=== PATIENT | male | born 1980 | race Caucasian/White ===

== ENCOUNTER 2020-07-06 08:37 | Outpatient (CLI) | payer OTHER, SELFPAY ==
--- NOTE | 2020-07-06 08:45 | MR_ITS ---
WS: [id number] MRI LUMBAR SPINE NONCONTRAST TECHNIQUE: Sagittal T1, T2 and STIR imaging. Axial T1 and T2 imaging. CLINICAL INFORMATION: M54.5 - Low back pain COMPARISON: MRI 2015 FINDINGS: Mild lumbar curve. No acute compression. Small central protrusions at L1-2, L4-5, and L5-S1. Mild apryl tral canal stenosis floor director imaging cervical spine at C4-C6. L1-L2: Small left pericentral disc protrusion with slight narrowing of the left subarticular recess. This is progressed since 2015. Mild facet arthropathy. Mild left foraminal narrowing. L2-L3: Normal. L3-L4: Mild annular bulging. Mild facet arthropathy. Mild facet arthropathy. Foramen are patent. L4-L5: Postoperative changes L4-5 laminectomy new from previous. Partial discectomy. Spinal canal is patent. Narrowing of the subarticular recess bilaterally with shallow central disc bulging. Moderate facet arthropathy. Mild right greater than left foraminal narrowing. L5-S1: Left pericentral disc protrusion impinges the traversing left S1 nerve root in the subarticula r recess. Mild left foraminal narrowing. Moderate facet arthropathy. Visualized pelvic bony structures: Normal. Paravertebral soft tissues: Normal. MR/MR lumbar spine wo con* [id number] IMPRESSION: 1. Mild lumbar curve. No acute compression. No high-grade central canal stenos is. 2. Prior laminectomy defects L4-5 new from previous. Shallow central disc bulg ing with mild narrowing of the subarticular recess at this level. Mild bilatera l foraminal narrowing. 3. Left pericentral disc protrusion L5-S1 progressed from previous impinges th e traversing left S1 nerve root. Mild left L5-S1 foraminal narrowing. 4. Tiny shallow left pericentral protrusion L1-2 impinges the traversing left L2 nerve root. This is progressed from previous. 5. Mild central canal stenosis in the cervical spine at C4-C6. 6. A few small disc protrusions in the mid and lower thoracic spine more promi nent at T8-T9, T9-T10, T10-11. This can be further evaluated with thoracic spin e MRI.
== END 2020-07-06 08:38 | disposition home or self-care (01) ==
PROVIDERS: PCP Nurse Practitioner Family; Visit Provider Nurse Practitioner Family
DX: M51.24 Other intervertebral disc displacement, thoracic region (principal); M48.02 Spinal stenosis, cervical region; M51.26 Other intervertebral disc displacement, lumbar region; M51.27 Other intervertebral disc displacement, lumbosacral region; M96.1 Postlaminectomy syndrome, not elsewhere classified
CPT/HCPCS: 72148

== ENCOUNTER → 2020-07-08 09:30 | Outpatient (BNVA) | payer OTHER, SELFPAY | PROVIDERS: PCP Nurse Practitioner Family; Referring Provider Dermatology; Visit Provider Orthopaedic Surgery | DX: M54.5 Low back pain (principal); Z48.89 Encounter for other specified surgical aftercare | CPT/HCPCS: 72110 ==

== ENCOUNTER 2020-11-22 08:17 | Emergency (ER) | payer OTHER, SELFPAY ==
[2020-11-22 08:23] VITALS: BP 172/121; PULSE 98; RESP 18; TEMP 36.8; O2SAT 97; BMI 18.6
[2020-11-22 08:33] VITALS: BP 174/127; PULSE 98; O2SAT 100
--- NOTE | 2020-11-22 08:35 | ED_ITS ---
HPI - Skin/Abscess/Foreign Bdy General: Chief complaint: Skin/Abscess/Foreign Body Stated complaint: Itching in hands Time Seen by Provider: 11/22/20 08:20 History of Present Illness: HPI narrative: 40-year-old male presents emergency room complaining of bugs coming out of his hands for the last month. States it began after he was in a friend's barn and he said he felt things crawling up on his legs. He states they are now working their way to his hands and they are exiting from the skin from his hands. He showed me a video on his phone where he had applied some sort of adhesive to the hand and then scraped it off. The skin of his hands is darkened after placing the adhesive on it which he states is evidence of the bugs inside the skin in his hand. Patient is very enthusiastic and confident about the self diagnosis which he states he confirmed by Googling it. MD complaint: rash Onset (ago): week(s) Location: L hand and R hand Relieving factors: none Exacerbating factors: none Associated symptoms: Deny arthralgias, chills, cough, fever(s), itching, myalgias, nausea, rigidity, short of breath or vomiting Treatments prior to arrival: none Review of Systems Const: Denies: fever(s) or chills ENMT: Denies: throat pain, ear or mastoid pain, nasal discharge or nasal c ongestion Card: Denies: chest pain, edema, dyspnea on exertion or orthopnea Resp: Denies: dyspnea, productive cough or non-productive cough GI: Denies: nausea or vomiting : Denies: flank pain, dysuria, urinary frequency or urinary urgency Skin/Breast: Reports: rash; Denies: pruritus PFS ED PFSH: Medical History Acute lumbar back pain Surgical History History of lumbar surgery Right L4-L5 hemilaminotomy/discectomy/formainotomy 11/30/[address] Rothman at [facility]. Social History Smoking and tobacco status: current every day smoker Quit status (tobacco): not considering quitting Second hand smoke exposure: No Smoking risk assessment/counseling performed?: No Alcohol intake: never Desire information about alcohol rehabilitation?: No Counseling given: No Physical Exam Const: GENERAL APPEARANCE: cooperative ORIENTATION/CONSCIOUSNESS: Yes awake HENMT: COMMON NORMALS: normocephalic, atraumatic and hearing grossly normal bilaterally HEAD & SCALP: normocephalic and atraumatic Neck/C-Spine: COMMON NORMALS: full ROM, no lymphadenopathy, supple and no JVD Resp: COMMON NORMALS: normal respiratory effort, No retractions, No use of accessory muscles and clear to auscultation bilaterally AUSCULTATION: clear to auscultation bilaterally Cardio: COMMON NORMALS: no JVD, regular rate, regular rhythm and No murmurs present (Cardio) RATE: regular rate RHYTHM: regular rhythm Extremity: NARRATIVE EXTREMITY EXAM: Examination had sitters significant about of what appears to be dirt oil etc. in the creases of the hands there are some areas of healing abrasions at various levels of resolution. He has some open excoriated areas on the dorsum of the hand. There is no active sign of an injection no drainage no abscess. No erythema. Course Vital Signs: Vital signs: Vital Signs Temperature 98.2 F 11/22/20 08:23 Pulse Rate 98 11/22/20 08:33 Respiratory Rate 18 11/22/20 08:23 Blood Pressure 174/127 11/22/20 08:33 Pulse Oximetry 100 11/22/20 08:33 MDM - Skin/Abscess/Foreign Bdy MDM Narrative: Medical decision making narrative: Suspect patient's currently under the influence of methamphetamine. He is very erratic in his description he Coleen tries to show me multiple videos in camera pictures but is unable to find any pictures that show me what he actually describes he switches back and forth between pitchers frequently. There is no evidence of any skin Data no evidence of any ongoing rash he is complaining of itching. Will have him use a little bit of betamethasone on the hands twice daily and set him up for dermatology. Discharge Plan Discharge Patient Disposition: Home Clinical Impression: Chemical dermatitis Condition: Stable Prescriptions: New betamethasone dipropionate 0.05 % ointment 1 applic topical BID Qty: 45 RF: 0 No Action prednisone 20 mg tablet 20 mg PO DAILY Qty: 15 RF: 0 methylprednisolone [Medrol (Yosvany)] 4 mg tablets,dose pack See Rx Instructions PO PER PKG DIR Qty: 21 RF: 0 ibuprofen 800 mg tablet 800 mg PO Q8H 30 Days Qty: 90 RF: 0 hydrocodone-acetaminophen 5-325 mg tablet 1 tab PO .q4-6 hours PRN (Reason: pain) 5 Days Qty: 30 RF: 0 Discharge Orders: Discharge ED (Routine); Ordered 11/22/20 Ordered By: Mohan Schmitz Referrals: KEVIN Whiteside, CERTIFIED WELLNESS PROGRAM COORDINATOR [Primary Care Provider] - Discharge Diet: Usual diet Discharge Activity: Resume usual activity Patient Instructions: Opioid Safety Activity Restrictions/Additional Instructions: Recommend you do not use any glues or other adhesives cleaning products etc. on your skin. Use the topical steroid twice daily for 7 to 10 days. Case management will make arrangements for you to see dermatology. Coding Level of Care Code ED Brake Operator Heavy Duty for Paulo Fwjavier Exam Detailed
--- NOTE | 2020-11-23 12:33 | DCPLANNER ---
Addendum entered by Tracey Murrieta 12/08/20 13:27: resolution manager called clinic to confirm if an appointment had been scheduled for patient. resolution manager was told that clinic has attempted to contact patient to schedule an appointment, waiting for patient to call clinic to schedule an appointment. Original Note: resolution manager had message to schedule a follow up appointment for patient with dermatology. resolution manager called the dermatology clinic, spoke with Jacquie, gave clinic patients information. resolution manager was told that patients information would be printed and reviewed. Clinic will call patient with appointment information.
== END 2020-11-22 08:45 | disposition home or self-care (01) ==
PROVIDERS: Emergency Provider Family Medicine; PCP Nurse Practitioner Family
DX: L25.3 Unspecified contact dermatitis due to other chemical products (principal); F17.210 Nicotine dependence, cigarettes, uncomplicated
CPT/HCPCS: 99281

== ENCOUNTER → 2020-11-26 10:52 | Outpatient (BNVA) | payer OTHER, SELFPAY | PROVIDERS: PCP Nurse Practitioner Family; Visit Provider Registered Nurse | DX: E11.9 Type 2 diabetes mellitus without complications (principal); I10 Essential (primary) hypertension; R20.2 Paresthesia of skin; E53.8 Deficiency of other specified B group vitamins | CPT/HCPCS: 80053; 80307; 81000; 82607; 85025; 87491; 87591 ==

== ENCOUNTER 2021-07-30 23:30 | Emergency (ER) | payer MEDICAID, SELFPAY ==
[2021-07-30 23:32] VITALS: BP 187/117; PULSE 92; RESP 20; O2SAT 97; BMI 26.6
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
[2021-07-30] MEDS: LORazepam 2 mg/mL INJ 1 mL 4 MG IVP (23:36)
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
[2021-07-30 23:49] VITALS: BP 167/111; PULSE 89; RESP 13; O2SAT 96
--- NOTE | 2021-07-30 23:50 | ECG_ITS ---
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 Measurements Intervals [place] Rate: 88 P: 67 ND: 133 QRS: 71 QRSD: 87 T: 72 QT: 381 QTc: 463 Interpretive Statements SINUS RHYTHM MINIMAL VOLTAGE CRITERIA FOR LVH, CONSIDER NORMAL VARIANT [MEETS CRITERIA IN ONE OF: R(aVL), S(V1), R(V5), R(V5/V6)+S(V1)] No previous ECG available for comparison Electronically Signed On 07-31-2021 19:27:42 CDT by Matthew Knight M.D. [id number]
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
[2021-07-30 23:58] LABS: Basophils % 0.3 %; Eosinophils # 0.2 10^3/uL (0.0-0.8); Eosinophils % 1.5 %; Hematocrit 39.2 % (42.0-52.0); Hemoglobin 12.9 g/dL (11.7-16.6); Lymphocytes # 2.7 10^3/uL (0.8-4.8); Lymphocytes % 23.6 %; Mean Corpuscular HGB Conc 32.9 g/dL (30.0-36.0); Mean Corpuscular Hemoglobin 31.1 pg (28.0-34.0); Mean Corpuscular Volume 94.5 fl (80-94); Mean Platelet Volume 8.5 fL (7.4-10.4); Monocytes # 0.9 10^3/uL (0.2-0.9); Neutrophils # 7.54 10^3/uL (1.8-7.7); Nucleated Red Blood Cells % 0 %; Platelet Count 383 10^3/cmm (130-400); Red Blood Count 4.15 10^6/uL (4.1-5.3); Red Cell Distribution Width 13.2 % (12.1-15.1); White Blood Count 11.4 10^3/uL (4.0-10.0)
[2021-07-31] VITALS (23 sets, daily range): BP systolic 128–166; BP diastolic 77–100; PULSE 92–112; RESP 17–23; O2SAT 92–98
[2021-07-31] MEDS: sodium chloride 0.9% 1,000 ML 999 ML IV (00:10)
[2021-07-31 00:13] LABS: Alanine Aminotransferase 32 U/L (0-41); Albumin Level 3.9 g/dL (3.5-5.2); Alkaline Phosphatase 92 IU/L (40-130); Anion Gap 12.5 (5-19); Aspartate Amino Transferase 25 U/L (0-40); Blood Urea Nitrogen 17 mg/dL (6-20); Calcium 8.4 mg/dL (8.5-10.5); Carbon Dioxide 27 mmol/L (22-29); Chloride 98 mmol/L (98-107); Globulin 2.9 g/dL (1.3-4.6); Glomerular Filtration Rate 123.1 mL/min (90-130); Glucose 96 mg/dL (65-115); Magnesium 2.1 mg/dL (1.7-2.3); Osmolality Calculated 279 mOsm/kg (285-295); Phosphorus 4.4 mg/dL (2.5-4.5); Potassium 3.5 mmol/L (3.5-5.1); Sodium 134 mmol/L (136-145); Total Bilirubin 0.2 mg/dL (0.15-1.2); Total Protein 6.8 g/dL (6.6-8.7)
[2021-07-31 00:17] LABS: ABG PCO2 45.2 mmHg (35-45); ABG PH Result 7.43 (7.35-7.45); Arterial Blood Gas Hematocrit 40.2 % (42-52); Blood Gas Allen Test Pos; Blood Gas Sample Site Radial, right; Blood Gas Sample Type Arterial; HCO3 ABG 30.1 mmol/L (22-26); Oxygen Device ROOM AIR; PO2 ABG 88.4 mmHg (80.0-100.0)
[2021-07-31 00:22] LABS: Alcohol Level < 10 mg/dL (0-10)
[2021-07-31 00:29] LABS: INR 0.98 (0.8-1.2)
[2021-07-31 00:34] LABS: Amphetamines Screen Urine Positive (Negative); Barbiturates Screen Urine Negative (Negative); Benzodiazepines Screen Urine Negative (Negative); Cocaine Screen Urine Negative (Negative); Opiate Screen Urine Negative (Negative); PCP Screen Urine Negative (Negative); THC Screen Urine Positive (Negative)
--- NOTE | 2021-07-31 00:34 | PC.NURSE ---
pt straight cath for urine
[2021-07-31 00:40] LABS: Add Urine Microscopic? YES; Bilirubin Urine Neg (Negative); Blood Urine Trace (Negative); Glucose Urine UA Norm (Normal); Ketones Urine Negative (Negative); Leukocyte Esterase Urine Negative (Negative); Nitrate Urine Negative (Negative); Protein Urine Neg (Negative); Specific Gravity, Urine 1.025 (1.005-1.030); Urine Appearance Clear (CLEAR); Urine Color Yellow (Yellow); Urobilinogen Urine Norm (Negative); pH Urine 5 (5-7)
[2021-07-31 00:41] LABS: Add Urine Culture? No; Bacteria Urine TRACE /hpf; Squamous Epithelial Cell Urine 0-4 /hpf (0-5); WBC Urine 0-4 /hpf (0-5)
[2021-07-31] MEDS: iohexol 300 mg/mL 100 mL Btl IV (00:44)
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
--- NOTE | 2021-07-31 02:52 | PC.NURSE ---
pt removed monitor and pulse ox stood up on the side of bed, would not listen to staff walked down the samson urinating, pt was placed in wheelchair and taken back to room placed back on monitor he rolled over and went to sleep
== END 2021-07-31 06:20 | disposition home or self-care (01) ==
PROVIDERS: Emergency Provider Emergency Medicine; PCP Registered Nurse
DX: S06.0X9A Concussion with loss of consciousness of unspecified duration, initial encounter (principal); V86.99XA Unspecified occupant of other special all-terrain or other off-road motor vehicle injured in nontraffic accident, initial encounter; F15.129 Other stimulant abuse with intoxication, unspecified
CPT/HCPCS: 36600; 70450; 71260; 72125; 73562; 74177; 80053; 80306; 80307; 81001; 82803; 83735; 84100; 85025; 85610; 86850; 86900; 93005; 96361; 96374; 99284; J2060; J7030; Q9967

== ENCOUNTER 2021-08-17 22:22 | Emergency (ER) | payer MEDICAID, SELFPAY ==
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
[2021-08-17 22:26] VITALS: BP 175/108; PULSE 92; RESP 20; TEMP 37; O2SAT 98; BMI 25.1
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
[2021-08-17] MEDS: HYDROcodone-acetaminophen 7.5-325 mg Tablet 1 TAB PO (23:00)
[2021-08-17 23:48] VITALS: BP 169/98; PULSE 88; RESP 16; TEMP 37; O2SAT 98
--- NOTE | 2021-08-18 13:04 | DCPLANNER ---
Addendum entered by Tracey Murrieta 08/25/21 15:31: Patient had a follow up appointment scheduled for 08.19.21 at ortho - patient did attend appointment. Original Note: auto fleet manager had message to schedule a follow up appointment for patient with ortho. auto fleet manager sent patients information to the front office staff at ortho. Patients information will be printed and reviewed. Clinic will call patient with appointment information.
== END 2021-08-17 23:49 | disposition home or self-care (01) ==
PROVIDERS: Emergency Provider Physician Assistant
DX: S89.91XA Unspecified injury of right lower leg, initial encounter (principal); W19.XXXA Unspecified fall, initial encounter; F17.210 Nicotine dependence, cigarettes, uncomplicated
CPT/HCPCS: 29530; 73562; 99283; E0114

== ENCOUNTER → 2021-10-06 11:51 | Outpatient (BNVA) | payer OTHER, SELFPAY | PROVIDERS: Visit Provider Psychiatry & Neurology Psychiatry | DX: F41.1 Generalized anxiety disorder (principal) | CPT/HCPCS: 80061; 83036 ==

== ENCOUNTER 2022-02-01 18:28 | Emergency (ER) | payer BC, MEDICAID, SELFPAY ==
[2021-10-26 16:33] VITALS: BP 154/100; BMI 25.0
--- NOTE | 2022-02-01 18:38 | XRR_ITS ---
PROCEDURE INFORMATION: Exam: XR Chest Exam date and time: 02/01/2022 6:46 PM Age: 41 years old Clinical indication: Other: AMS TECHNIQUE: Imaging protocol: Radiologic exam of the chest. Views: 1 view. COMPARISON: CT chest abd pel w con* 07/31/2021 12:36 AM FINDINGS: Lungs: Unremarkable. No consolidation. Pleural spaces: Unremarkable. No pleural effusion. No pneumothorax. Heart/Mediastinum: Unremarkable. No cardiomegaly. Bones/joints: Unremarkable. XR/XR chest 1V portable [id number] IMPRESSION: No acute findings.
[2022-02-01 18:40] VITALS: BP 181/110; PULSE 94; RESP 14; TEMP 36.4; O2SAT 96; BMI 25.1
--- NOTE | 2022-02-01 18:42 | ED_ITS ---
HPI - General Adult General: Chief complaint: Overdose Stated complaint: possible poison Time Seen by Provider: 02/01/22 18:32 Source: EMS Mode of arrival: EMS Limitations: altered mental status History of Present Illness: 41-year-old male is brought in by EMS for altered mental status. Per patient's brother he had been hanging out with friends he does use marijuana he states he had had marijuana cookies and he believes that he had 8 1. Patient here is not able to answer any my questions he will respond to painful stimuli and does say his name but otherwise does not answer any other questions no signs of any injuries. Review of Systems General: Reports: ROS unobtainable due to mental status PFSH ED PFSH: Medical History Acute lumbar back pain Psychiatric care Surgical History History of lumbar surgery Right L4-L5 hemilaminotomy/discectomy/formainotomy 11/30/[address] Rothman at [facility]. Family History Other Cancer Diabetes Hypertension Recreational drug use Social History Smoking and tobacco status: current every day smoker cigars Cigars smoked per week: 3 Years smoked cigars: 23 Quit status (tobacco): has tried quititng Number of times tried to quit tobacco: 4 Second hand smoke exposure: No Smoking risk assessment/counseling performed?: No Alcohol intake: current Alcohol intake frequency: holidays/special occasions only Alcohol type: beer Desire information about alcohol rehabilitation?: No Counseling given: No Desire information about substance/drug rehabilitation?: No Counseling given: No Adopted: No Caregiver/support person: No Lives independently: Yes Household members: family Housing: House Marital status: Number of children: 1 Number of grandchildren: 0 Highest education level completed: Some College, No Degree service: Yes 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: Active Duty branch: [employer] Assignments: Outside [facility] ([employer]) Known or Potential Exposure: Environmental Toxins, Traumatic Brain Injury (TBI) and Post Traumatic Stress Disorder (PTSD) Current occupational status: disabled Pets and animals: Yes Pets & animals: cat(s) and dog(s) History of recent travel: No Leisure activites: art, music, games and other Leisure activities details: anyt hin outdoors Current gender identity: Male Marcie/Uatsdin: Gnosticist Special marcie needs: No Agree to transfusion: Yes Financial difficulty paying for basics: Very Hard Physical Exam Const: COMMON NORMALS: negative for patient oriented x3 EXAM LIMITATIONS: altered mental status HENMT: COMMON NORMALS: normocephalic and atraumatic HEAD & SCALP: normocephalic and atraumatic Eye: COMMON NORMALS: Equal, round and reactive pupils present and EOMs intact bilaterally PUPIL: Yes Equal, round and reactive pupils present Neck/C-Spine: COMMON NORMALS: full ROM and supple Chest: COMMONS NORMALS: normal inspection of the chest and normal palpation of entire chest wall Resp: COMMON NORMALS: normal respiratory effort, No retractions, No use of accessory muscles and clear to auscultation bilaterally AUSCULTATION: clear to auscultation bilaterally Cardio: COMMON NORMALS: regular rate, regular rhythm and No murmurs present (Cardio) RATE: regular rate RHYTHM: regular rhythm GI: COMMON NORMALS: Normal to inspection, nondistended, normoactive bowel sounds present, Soft to palpation, non-tender and no masses PALPATION: Yes Soft to palpation Extremity: COMMON NORMALS: normal to inspection and full ROM Neuro: COMMON NORMALS: no focal motor deficits; negative for patient oriented x3 Psych: COMMON NORMALS: negative for mental status grossly normal Skin: COMMON NORMALS: no rashes or lesions noted and no wounds GENERAL SKIN EXAM: no rashes or lesions noted Course Vital Signs: Vital signs: Vital Signs Temperature 97.5 F L 02/01/22 18:40 Pulse Rate 94 02/01/22 18:40 Respiratory Rate 14 02/01/22 18:40 Blood Pressure 181/110 02/01/22 18:40 Pulse Oximetry 96 02/01/22 18:40 Oxygen Delivery Me thod 02/01/22 18:40 MDM - General Adult Medical Decision Making Patient presents here with altered mental status from possible drug ingestion he is now awake and alert well-appearing he has no complaints he is able ambulate without any difficulty his other lab work CT is normal he stable for discharge return if worsening. Lab Data : 02/01/22 18:40 02/01/22 18:40 Radiology Impressions Chest X-Ray 02/01/22 18:38 IMPRESSION: No acute findings. Laboratory Results WBC 9.7 10^3/uL (4.0-10.0) 02/01/22 18:40 RBC 4.44 10^6/uL (4.1-5.3) 02/01/22 18:40 Hgb 14.0 g/dL (11.7-16.6) 02/01/22 18:40 Hct 42.3 % (42.0-52.0) 02/01/22 18:40 MCV 95.3 fl (80-94) H 02/01/22 18:40 MCH 31.5 pg (28.0-34.0) 02/01/22 18:40 MCHC 33.1 g/dL (30.0-36.0) 02/01/22 18:40 RDW 12.8 % (12.1-15.1) 02/01/22 18:40 Plt Count 331 10^3/cmm (130-400) 02/01/22 18:40 MPV 9.0 fL (7.4-10.4) 02/01/22 18:40 Neut % (Auto) 71.2 % 02/01/22 18:40 Lymph % (Auto) 19.8 % 02/01/22 18:40 [place] % (Auto) 7.8 % 02/01/22 18:40 Eos % (Auto) 0.4 % 02/01/22 18:40 Baso % (Auto) 0.3 % 02/01/22 18:40 Neut # (Auto) 6.92 10^3/uL (1.8-7.7) 02/01/22 18:40 Lymph # (Auto) 1.9 10^3/uL (0.8-4.8) 02/01/22 18:40 [place] # (Auto) 0.8 10^3/uL (0.2-0.9) 02/01/22 18:40 Eos # (Auto) 0.0 10^3/uL (0.0-0.8) 02/01/22 18:40 Baso # (Auto) 0.0 10^3/uL (0.0-0.1) 02/01/22 18:40 Nucleated RBC % (auto) 0 % 02/01/22 18:40 Nucleated RBCs # 0.0 /100WBC 02/01/22 18:40 PT 14.20 SECONDS (12.1-14.9) 02/01/22 18:40 INR 1.06 (0.8-1.2) 02/01/22 18:40 Sodium 137 mmol/L (136-145) 02/01/22 18:40 Potassium 3.3 mmol/L (3.5-5.1) L 02/01/22 18:40 Chloride 102 mmol/L (98-107) 02/01/22 18:40 Carbon Dioxide 25 mmol/L (22-29) 02/01/22 18:40 Anion Gap 13.3 (5-19) 02/01/22 18:40 BUN 18 mg/dL (6-20) 02/01/22 18:40 Creatinine 1.2 mg/dL (0.7-1.2) 02/01/22 18:40 GFR Calculation Not Reportable 02/01/22 18:40 Glucose 105 mg/dL (65-115) 02/01/22 18:40 Calculated Osmolality 286 mOsm/kg (285-295) 02/01/22 18:40 Calcium 8.4 mg/dL (8.5-10.5) L 02/01/22 18:40 Total Bilirubin 0.2 mg/dL (0.15-1.2) 02/01/22 18:40 AST 22 U/L (0-40) 02/01/22 18:40 ALT 14 U/L (0-41) 02/01/22 18:40 Alkaline Phosphatase 95 U/L (40-130) 02/01/22 18:40 Total Protein 6.8 g/dL (6.6-8.7) 02/01/22 18:40 Albumin 4.0 g/dL (3.5-5.2) 02/01/22 18:40 Globulin 2.8 g/dL (1.3-4.6) 02/01/22 18:40 Salicylates < 0.3 mg/dL (3-10) L 02/01/22 18:40 Urine Opiates Screen Negative ng/mL (Negative) 02/01/22 19:16 Acetaminophen < 5.0 ug/mL (10-30) L 02/01/22 18:40 Ur Barbiturates Screen Negative ng/mL (Negative) 02/01/22 19:16 Ur Phencyclidine Scrn Negative ng/mL (Negative) 02/01/22 19:16 Ur Amphetamines Screen Positive ng/mL (Negative) H 02/01/22 19:16 U Benzodiazepines Scrn Negative ng/mL (Negative) 02/01/22 19:16 Urine Cocaine Screen Negative ng/mL (Negative) 02/01/22 19:16 U Marijuana (THC) Screen Positive ng/mL (Negative) H 02/01/22 19:16 Ethyl Alcohol < 10 mg/dL (0-10) 02/01/22 18:40 EKG Data EKG 1: I personally reviewed and interpreted this EKG as follows: EKG interpretation date: 02/01/22 EKG interpretation time: 18:56 Interpretation: nsr hr [address] or t wave abnormalities qrs 89 qtc 417 Computer generated interpretation: Chest X-Ray 02/01/22 18:38 IMPRESSION: No acute findings. Discharge Plan Discharge Patient Disposition: Home Clinical Impression: Altered mental state Condition: Stable Prescriptions: No Action fluoxetine [Prozac] 20 mg capsule 20 mg PO DAILY Qty: 30 2RF trazodone 50 mg tablet 100 mg PO BID PRN (Reason: insomnia) Qty: 60 1RF atorvastatin 20 mg tablet 20 mg PO DAILY cholecalciferol (vitamin D3) 25 mcg (1,000 unit) capsule 25 mcg PO DAILY Discharge Orders: Discharge ED (Routine); Ordered 02/01/22 Ordered By: Patel Jaimes Discharge Diet: Advance as tolerated Discharge Activity: Resume usual activity Patient Instructions: Altered Mental Status (ED) Coding Level of Care Code ED Beauty Director for Gabrieleg Fwd Exam Comprehensive
[2022-02-01 18:53] LABS: Basophils % 0.3 %; Eosinophils % 0.4 %; Hematocrit 42.3 % (42.0-52.0); Lymphocytes # 1.9 10^3/uL (0.8-4.8); Lymphocytes % 19.8 %; Mean Corpuscular HGB Conc 33.1 g/dL (30.0-36.0); Mean Corpuscular Hemoglobin 31.5 pg (28.0-34.0); Mean Corpuscular Volume 95.3 fl (80-94); Monocytes # 0.8 10^3/uL (0.2-0.9); Monocytes % 7.8 %; Neutrophils # 6.92 10^3/uL (1.8-7.7); Neutrophils % 71.2 %; Nucleated Red Blood Cells % 0 %; Platelet Count 331 10^3/cmm (130-400); Red Blood Count 4.44 10^6/uL (4.1-5.3); Red Cell Distribution Width 12.8 % (12.1-15.1); White Blood Count 9.7 10^3/uL (4.0-10.0)
--- NOTE | 2022-02-01 18:56 | ECG_ITS ---
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 Measurements Intervals [place] Rate: 94 P: 54 AR: 133 QRS: 8 QRSD: 89 T: 56 QT: 365 QTc: 457 Interpretive Statements SINUS RHYTHM POSSIBLE LEFT ATRIAL ENLARGEMENT [-0.1mV P-WAVE IN V1/V2] Compared to ECG 07/31/2021 00:17:59 No significant changes Electronically Signed On 02-02-2022 7:07:44 CDT by Ron Prasad M.D. [id number]
[2022-02-01 19:05] LABS: INR 1.06 (0.8-1.2)
[2022-02-01] MEDS: sodium chloride 0.9% 1,000 ML 999 ML IV (19:07)
[2022-02-01 19:29] LABS: Alanine Aminotransferase 14 U/L (0-41); Alkaline Phosphatase 95 U/L (40-130); Anion Gap 13.3 (5-19); Aspartate Amino Transferase 22 U/L (0-40); Blood Urea Nitrogen 18 mg/dL (6-20); Carbon Dioxide 25 mmol/L (22-29); Chloride 102 mmol/L (98-107); Globulin 2.8 g/dL (1.3-4.6); Glucose 105 mg/dL (65-115); Osmolality Calculated 286 mOsm/kg (285-295); Sodium 137 mmol/L (136-145); Total Bilirubin 0.2 mg/dL (0.15-1.2); Total Protein 6.8 g/dL (6.6-8.7)
[2022-02-01 19:46] LABS: Acetaminophen < 5.0 ug/mL (10-30); Alcohol Level < 10 mg/dL (0-10); Calcium 8.4 mg/dL (8.5-10.5); Potassium 3.3 mmol/L (3.5-5.1); Salicylate < 0.3 mg/dL (3-10)
[2022-02-01 19:51] LABS: Amphetamines Screen Urine Positive (Negative); Barbiturates Screen Urine Negative (Negative); Benzodiazepines Screen Urine Negative (Negative); Cocaine Screen Urine Negative (Negative); Opiate Screen Urine Negative (Negative); PCP Screen Urine Negative (Negative); THC Screen Urine Positive (Negative)
== END 2022-02-01 20:31 | disposition home or self-care (01) ==
PROVIDERS: Emergency Provider Emergency Medicine
DX: R41.82 Altered mental status, unspecified (principal); F17.210 Nicotine dependence, cigarettes, uncomplicated
CPT/HCPCS: 71045; 80053; 80306; 80307; 85025; 85610; 93005; 96360; 99285; J7030

== ENCOUNTER → 2022-10-18 10:26 | Outpatient (BNVA) | payer OTHER, SELFPAY ==
[2021-10-26 16:33] VITALS: BP 154/100; BMI 25.0
== END ==
PROVIDERS: Visit Provider Psychiatry & Neurology Psychiatry
DX: F43.12 Post-traumatic stress disorder, chronic (principal)
CPT/HCPCS: 80061; 83036

== ENCOUNTER 2023-01-11 13:05 | Outpatient (CLI) | payer OTHER, SELFPAY ==
[2022-11-08 16:54] VITALS: BP 136/101; BMI 28.5
--- NOTE | 2023-01-11 13:13 | MR_ITS ---
WS: [id number] MRI LUMBAR SPINE NONCONTRAST HISTORY: LOW BACK PAIN, prior lumbar spine surgery 2018. COMPARISON: 07/06/2020 TECHNIQUE: Sagittal and axial multisequence imaging is submitted. Mild straightening of the normal lumbar lordosis. No acute fracture or marrow edema. Mild disc space narrowing at L4-5 and L5-S1. Conus terminates normally at L1. L1-L2: Mild annular disc bulging. Small LEFT paracentral disc protrusion has increased in size since the prior examination. There is mass effect upon the LEFT lateral cord. Mild encroachment upon the ervin barticular recesses. L2-L3: No stenosis L3-L4: Mild annular disc bulging and facet and ligamentum flavum arthritis. L4-L5: Mild annular disc bulging and osteophytic ridging. There is a moderate size central disc protr usion. Disc protrusion extends just caudad to the disc level. Mild bilateral foraminal stenosis. Cent ral disc protrusion contacts the traversing L5 nerve roots. Prior L4-5 laminectomy. L5-S1: Mild annular disc bulge. There is a small central disc protrusion slightly greater to the LEFT of midline. Disc protrusion is slightly smaller of the as compared to the prior study. Less contact on the LEFT S1 nerve root. Mild bilateral foraminal narrowing. IMPRESSION: 1. No acute compression fractures or marrow edema. 2. Prior laminectomy defect at L4-5. 3. L1-2: Small LEFT paracentral disc protrusion with slight increase in size since 2020. Mild encroac hment upon the subarticular recesses. 4. L4-5: Small central disc protrusion extends caudad to the disc level. There is mild contact on the bilateral traversing L5 nerve roots. 5. L5-S1: Small central disc protrusion is slightly decreased in size since 2020 less contact on the LEFT S1 nerve root. 6. Mild bilateral foraminal narrowing at L4-5 and L5-S1.
== END 2023-01-11 13:06 | disposition home or self-care (01) ==
PROVIDERS: PCP Family Medicine; Visit Provider Family Medicine
DX: Z01.89 Encounter for other specified special examinations (principal); M51.27 Other intervertebral disc displacement, lumbosacral region; M48.07 Spinal stenosis, lumbosacral region; Z98.890 Other specified postprocedural states
CPT/HCPCS: 72148

== ENCOUNTER 2023-03-08 13:49 | Outpatient (RCR) | payer OTHER, SELFPAY ==
[2022-11-08 16:54] VITALS: BP 136/101; BMI 28.5
== END 2023-03-08 23:59 | disposition home or self-care (01) ==
LOC: SPT 13:49
PROVIDERS: PCP Family Medicine; Visit Provider Family Medicine
DX: M54.50 Low back pain, unspecified (principal)
CPT/HCPCS: 97161

== ENCOUNTER 2023-03-30 08:24 | Outpatient (RCR) | payer OTHER, SELFPAY ==
[2022-11-08 16:54] VITALS: BP 136/101; BMI 28.5
== END 2023-04-08 23:59 | disposition home or self-care (01) ==
LOC: SPT 08:24
PROVIDERS: PCP Family Medicine; Visit Provider Family Medicine
DX: M54.50 Low back pain, unspecified (principal)
CPT/HCPCS: 97110

== ENCOUNTER 2023-04-09 06:00 | Outpatient (RCR) | payer OTHER, SELFPAY ==
[2022-11-08 16:54] VITALS: BP 136/101; BMI 28.5
== END 2023-05-09 23:59 | disposition home or self-care (01) ==
LOC: SPT 06:00
PROVIDERS: PCP Family Medicine; Visit Provider Family Medicine
DX: M54.50 Low back pain, unspecified (principal)
CPT/HCPCS: 97110

== ENCOUNTER → 2024-01-08 08:39 | Outpatient (BNVA) | payer OTHER, SELFPAY ==
[2022-11-08 16:54] VITALS: BP 136/101; BMI 28.5
== END ==
PROVIDERS: PCP Family Medicine; Referring Provider Family Medicine; Visit Provider Surgery
DX: Z12.11 Encounter for screening for malignant neoplasm of colon (principal); Z80.0 Family history of malignant neoplasm of digestive organs
CPT/HCPCS: 99204

== ENCOUNTER 2024-05-14 13:46 | Outpatient (CLI) | payer OTHER, SELFPAY ==
[2022-11-08 16:54] VITALS: BP 136/101; BMI 28.5
== END 2024-05-14 13:47 | disposition home or self-care (01) ==
LOC: SLEEP 13:47
PROVIDERS: PCP Family Medicine; Visit Provider Nurse Practitioner Family
DX: G47.33 Obstructive sleep apnea (adult) (pediatric) (principal)
CPT/HCPCS: G0399

== ENCOUNTER 2024-05-29 07:49 | Day surgery (SDC) | payer OTHER, SELFPAY ==
[2022-11-08 16:54] VITALS: BP 136/101; BMI 28.5
[2024-05-29 08:03] VITALS: BP 136/105; PULSE 121; RESP 18; TEMP 37.3; O2SAT 97; BMI 28.0
[2024-05-29] MEDS: sodium chloride 0.9% 500 ML 15 ML IV (08:09)
--- NOTE | 2024-05-29 08:11 | W.PM.OPSFHP ---
Same Day Surgery H&P Indication for Procedure/HPI DATE OF PROCEDURE: May 29, 2024 CHIEF COMPLAINT/INDICATIONFOR SURGICAL PROCEDURE: need for screening colonoscopy PREOP DIAGNOSIS: need for screening colonoscopy PLANNED PROCEDURE: Operation Date: 05/29/24 09:15 Proposed Procedures p Colonoscopy 36183, G0121, Z12.11(Not Applicable) - Shai Guadalupe MD Medications/Allergies* Home Medications ?Medication ?Instructions ?Recorded ?Confirmed ?Type atorvastatin 40 mg tablet 40 mg PO DAILY 10/18/22 05/29/24 History lisinopril 40 mg tablet 40 mg PO DAILY 10/18/22 05/29/24 History Allergies/Adverse Reactions Allergy/AdvReac Type Severity Reaction Status Date / Time No Known Allergies Allergy Verified 05/26/24 09:42 Current Medications: Generic Name Dose Route Start Last Admin Trade Name Freq PRN Reason Stop Dose Admin Sodium Chloride 500 mls @ 15 mls/hr 05/29/24 07:55 05/29/24 08:09 Sodium Chloride 0.9% IV 05/30/24 07:54 15 mls/hr .Q24H PRN Administration COLONOSCOPY FLUIDS Pertinent History/Comorbid Conditions* Medical History (Updated 02/09/22 @ 00:01 by RHEA Chance) Psychiatric care Acute lumbar back pain Surgical History (Updated 06/28/20 @ 13:23 by ANGELA Francis) History of lumbar surgery Right L4-L5 hemilaminotomy/discectomy/formainotomy 11/30/[address] Rothman at [facility]. Family History (Updated 11/03/21 @ 13:02 by Leida Fitzpatrick RN) Diabetes Recreational drug use Cancer Hypertension Social History Smoking and tobacco/nicotine status: current every day tobacco/nicotine user (smokes vape) cigars Cigars smoked per week: 14 Years smoked cigars: 24 Cigar details: Smokes 2 every day and e-cigarettes E-Cigarette Details: e-cigarette Quit status (tobacco/nicotine): has tried quititng Number of times tried to quit tobacco: 4 Second hand smoke exposure: No Alcohol intake: current Alcohol intake frequency: holidays/special occasions only Alcohol type: beer Substance/Drug Use: current Substance/Drug use frequency: daily Other substance/drug use details: 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 Adopted: No Caregiver/support person: No Lives independently: Yes Household members: children Housing: House Marital status: Number of children: 1 Number of grandchildren: 0 Highest education level completed: Some College, No Degree service: Yes status: Active Duty branch: [employer] Assignments: Outside [facility] [place] ([facility]) Known or Potential Exposure: Environmental Toxins, Traumatic Brain Injury (TBI) and Post Traumatic Stress Disorder (PTSD) Current occupational status: disabled Current occupational exposures/hazards: No Pets and animals: No Leisure activites: art, music, games and other Leisure activities details: anything outdoors Sexually active: No Do you think of yourself as: Straight/Heterosexual Current gender identity: Male Marcie/Tenriism: Cheondoism Special marcie needs: No Agree to transfusion: Yes Pertinent Exam Findings alert, oriented x 3, clear to auscultation bilaterally and regular rate & rhythm Recommendations Surgery/Procedure today Coding Level of Care Code Acute Code for Paulo Vanegas
--- NOTE | 2024-05-29 08:24 | ANES.PREANE2 ---
Pre-Anesthetic Assessment Height/Weight: Height 1.75 m Weight 86.183 kg Temp Pulse Resp BP Pulse Ox O2 Del Method 99.1 F 121 H 18 136/105 97 Room Air 05/29/24 08:03 05/29/24 08:03 05/29/24 08:03 05/29/24 08:03 05/29/24 08:03 05/29/24 08:03 Preop Diagnosis: need for screening colonoscopy Operation Date: 05/29/24 09:15 Proposed Procedures p Colonoscopy 45252, G0121, Z12.11(Not Applicable) - Shai Guadalupe MD Familial anesthetic complications: none Was Beta Jordana taken within 24 hours: N/A Was Clonidine taken within 24 hours: N/A Last intake: Intake Last Liquid Date 05/28/24 Last Liquid Time 20:00 Last Solid Date 05/27/24 Last Solid Time 18:00 Social Tobacco (vapes (quit 1 week ago)) Hasnt drank in months, denies meth use clean for 2 years. Exam alert, oriented x 3, clear to auscultation bilaterally and regular rate & rhythm Airway Submandibular: within normal limits Cervical ROM: within normal limits Mallampati: Class II Dentition: chipped Pulmonary None reported just completed sleep study hasnt heard back yet. CV/HEM Hypertension None reported Hepatic None reported GI None reported Metabolic None reported Musc/skel None reported Neuropsych None reported Anesthetic Plan ASA status: 2 Anesthesia: MAC Medications/Allergies Home Medications ?Medication ?Instructions ?Recorded ?Confirmed ?Last Taken ?Type atorvastatin 40 mg tablet 40 mg PO DAILY 10/18/22 05/29/24 05/28/24 History lisinopril 40 mg tablet 40 mg PO DAILY 10/18/22 05/29/24 05/28/24 History Allergies Allergy/AdvReac Type Severity Reaction Status Date / Time No Known Allergies Allergy Verified 05/26/24 09:42 Current Medications Generic Name Dose Route Start Last Admin Trade Name Freq PRN Reason Stop Dose Admin Sodium Chloride 500 mls @ 15 mls/hr 05/29/24 07:55 05/29/24 08:09 Sodium Chloride 0.9% IV 05/30/24 07:54 15 mls/hr .Q24H PRN Administration COLONOSCOPY FLUIDS PFSH Anesthesia Medical History Psychiatric care Acute lumbar back pain Surgical History History of lumbar surgery Right L4-L5 hemilaminotomy/discectomy/formainotomy 11/30/[address] Rothman at [facility]. Family History Other Cancer Diabetes Hypertension Recreational drug use Social History (Updated 01/08/24 @ 08:47 by SANA Guzman) Smoking and tobacco/nicotine status: current every day tobacco/nicotine user (smokes vape) cigars Cigars smoked per week: 14 Years smoked cigars: 24 Cigar details: Smokes 2 every day and e-cigarettes E-Cigarette Details: e-cigarette Quit status (tobacco/nicotine): has tried quititng Number of times tried to quit tobacco: 4 Second hand smoke exposure: No Alcohol intake: current Alcohol intake frequency: holidays/special occasions only Alcohol type: beer Substance/Drug Use: current Substance/Drug use frequency: daily Other substance/drug use details: 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 Adopted: No Caregiver/support person: No Lives independently: Yes Household members: children Housing: House Marital status: Number of children: 1 Number of grandchildren: 0 Highest education level completed: Some College, No Degree service: Yes status: Active Duty branch: [employer] Assignments: Outside [facility] ([employer]) Known or Potential Exposure: Environmental Toxins, Traumatic Brain Injury (TBI) and Post Traumatic Stress Disorder (PTSD) Current occupational status: disabled Current occupational exposures/hazards: No Pets and animals: No Leisure activites: art, music, games and other Leisure activities details: anything outdoors Sexually active: No Do you think of yourself as: Straight/Heterosexual Current gender identity: Male Marcie/Oriental Orthodox: Gnosticism Special marcie needs: No Agree to transfusion: Yes Data Anesthesia Cardiac Studies: No Data to Display
[2024-05-29 09:21] VITALS: BP 104/81; PULSE 100; RESP 21; TEMP 36.2; O2SAT 94
[2024-05-29 09:38] VITALS: BP 118/78; PULSE 101; RESP 18; O2SAT 96
[2024-05-29 09:50] VITALS: BP 138/107; PULSE 90; RESP 18; O2SAT 97
[2024-05-29 10:06] VITALS: BP 131/99; PULSE 86; RESP 18; O2SAT 99
--- NOTE | 2024-05-29 10:18 | ANE.PACU2 ---
Inpatient post-anesthesia follow up: Airway intact: Yes Vital signs: Temperature 97.2 F Pulse Rate 86 Respiratory Rate 18 Blood Pressure 131/99 Pulse Oximetry 99 Oxygen Delivery Me thod Room Air Oxygen Flow Rate Fraction of Inspir ed Oxygen Hydration adequate: Yes Nausea and vomiting: No Pain level: 1 Mental status: Baseline
== END 2024-05-29 10:18 | disposition home or self-care (01) ==
PROVIDERS: PCP Family Medicine; Visit Provider Surgery
PROC: 0DJD8ZZ Inspection of Lower Intestinal Tract, Via Natural or Artificial Opening Endoscopic (ICD-10-PCS; CPT 45378; principal; 2024-05-29 09:15)
DX: Z12.11 Encounter for screening for malignant neoplasm of colon (principal); Z79.899 Other long term (current) drug therapy; F17.290 Nicotine dependence, other tobacco product, uncomplicated; I10 Essential (primary) hypertension; K62.1 Rectal polyp; Z80.0 Family history of malignant neoplasm of digestive organs
CPT/HCPCS: 45380; 88305; J2371; J2704; J7040

== ENCOUNTER → 2024-06-10 09:22 | Outpatient (BNVA) | payer OTHER, SELFPAY ==
[2022-11-08 16:54] VITALS: BP 136/101; BMI 28.5
== END ==
PROVIDERS: PCP Family Medicine; Visit Provider Surgery
DX: Z09 Encounter for follow-up examination after completed treatment for conditions other than malignant neoplasm (principal)
CPT/HCPCS: 99213

== ENCOUNTER 2024-12-02 13:33 | Outpatient (CLI) | payer OTHER, SELFPAY ==
[2022-11-08 16:54] VITALS: BP 136/101; BMI 28.5
== END 2024-12-02 13:34 | disposition home or self-care (01) ==
LOC: RT 13:36
PROVIDERS: PCP Family Medicine; Visit Provider Family Medicine
DX: R06.00 Dyspnea, unspecified (principal)
CPT/HCPCS: 94010; 94726; 94729